=== PATIENT | female | born 1975 | race Caucasian/White ===

== ENCOUNTER 2023-01-15 14:50 | Outpatient (CLI) | payer OTHER, SELFPAY ==
--- NOTE | ~2023-01-15 | CT_ITS ---
EXAMINATION: CT abdomen pelvis wo con DATE: 01/15/2023 15:51 INDICATION: Abdominal pain, bloating and diarrhea. TECHNIQUE: Computed tomography (CT) of the abdomen and pelvis was performed without intravenous contr ast. The dose-length product was 1476.39 mGy-cm. Automated exposure control and iterative reconstruct ion technique were employed. COMPARISON: None. FINDINGS: Lung bases are unremarkable. Heart size normal. No significant pleural or pericardial effus ion. Small hiatal hernia. Small umbilical hernia containing fat. There is atherosclerosis of the aorta without aneurysm. No lymphadenopathy. The liver, spleen, pancre as, adrenal glands and kidneys are unremarkable. Gallbladder is present. No free air or free fluid. N onobstructive bowel pattern. Mild lumbar spondylosis. IMPRESSION: 1. No acute abdominal abnormality. Reviewed, dictated and finalized at location L.
== END 2023-01-15 14:51 | disposition home or self-care (01) ==
PROVIDERS: PCP Family Medicine; Visit Provider Nurse Practitioner
DX: R10.13 Epigastric pain (principal)
CPT/HCPCS: 74176

== ENCOUNTER 2023-02-24 00:06 | Day surgery (SDC) | payer OTHER, SELFPAY ==
[2023-02-13 11:24] VITALS: BMI 48.8
[2023-02-24 09:51] VITALS: BP 177/90; PULSE 92; RESP 20; TEMP 36.4; O2SAT 98
[2023-02-24] MEDS: LACTATED RINGERS 1,000 ML 150 ML IV CONT (10:08)
--- NOTE | 2023-02-24 10:13 | WPDANESEPPF ---
Anes - Initial Pre Proc Eval Procedure: Operation Date: 02/24/23 10:45 Proposed Procedures p Esophagogastroduodenoscopy & Colonoscopy - Herminio Swift MD Date/Time: 02/24/23 10:13 Surgeon: Herminio Swift MD Pre Op Diagnosis: ibs w/ diarrhea,vomiting, gerd, abdominal distensi Patient Data Age: 47 Gender: F Height: 1.6 m Weight: 123.4 kg Last Vital Signs Temp 97.6 F 02/24/23 09:51 Pulse 92 02/24/23 09:51 Resp 20 02/24/23 09:51 BP 177/90 H 02/24/23 09:51 Pulse Ox 98 02/24/23 09:51 O2 Del Method Room Air 02/24/23 09:51 Allergies Allergy/AdvReac Type Severity Reaction Status Date / Time shellfish derived Allergy Severe Anaphylactic Verified 02/24/23 09:47 Shock Iodinated Contrast Media Allergy Unknown Verified 02/24/23 09:47 Home Medications Medication Instructions Recorded Confirmed Type alprazolam 0.25 mg tablet (Xanax) 0.25 mg PO QHS PRN anxiety #30 tabs 11/26/21 02/13/23 Rx metoprolol succinate 200 mg 200 mg PO DAILY #90 tabs 11/25/22 02/13/23 Rx tablet,extended release 24 hr levothyroxine 88 mcg tablet 88 mcg PO DAILY #90 tabs 12/03/22 02/13/23 Rx sertraline 100 mg tablet 150 mg PO DAILY #45 tabs 12/10/22 02/13/23 Rx ascorbic acid (vitamin C) 500 mg 500 mg PO DAILY 01/06/23 02/13/23 History capsule,extended release cholecalciferol (vitamin D3) 325 325 mcg PO DAILY 01/06/23 02/13/23 History mcg (13,000 unit) capsule omeprazole 40 mg capsule,delayed 40 mg PO DAILY #30 caps 01/06/23 02/13/23 Rx release sucralfate 1 gram tablet (Carafate) 1 g PO PRN PRN Indigestion 02/13/23 02/13/23 History Patient hx anesthesia problems: none Family hx anesthesia problems: none Results Review: All pre-operative results and documents have been reviewed as part of the pre-operative evaluation. PMFSH Past Medical History Medical History (Updated 01/07/23 @ 08:02 by Bessy Dyer APRN) Anxiety Elevated LFTs Epigastric pain Hypertension Hypothyroidism Irritable bowel syndrome with diarrhea Morbid obesity Nausea Regurgitation of food Family History Family History Mother Family history of thyroid disease Diabetes mellitus Hypertension Family history of rheumatoid arthritis Father Diabetes mellitus Family history of hypercholesterolemia Grandparent Diabetes mellitus, Onset Age: 75 Family history of cardiovascular disease, Onset Age: 75 Acute myocardial infarction, Onset Age: 75 Family history of lung cancer, Onset Age: 75 Family history of dementia, Onset Age: 75 Social History Social History Smoking status: Never smoker Alcohol intake: never Substance use: never Substance use type: does not use Lack of Transportation: No Lack of Food: Never True Current Housing: I Have Housing Concerned About Future Housing: No Difficulty Paying Gas/Electric Bills: No Difficulty Paying for Meds: No Currently Unemployed: No Education: Bachelor's Degree Difficulty w/ Childcare or Family Care: No Living arrangements: with family Spiritual care concerns: No Anes - Eval Final PreProcedure Day of Procedure 02/24/23 10:13 Patient weight: morbidly obese Heart: regular rate and rhythm Lungs: clear to auscultation Airway: Mallampati scale class III Neurological: alert and oriented Last oral intake: >/= 8 hours ASA classification: III Emergent: no Anesthetic plan: proceed Anesthesia type and monitoring: general GIVS and standard monitoring Results Review: All pre-operative results and documents have been reviewed as part of the pre-operative evaluation. Informed Consent: The patient's anesthetic plan and its attendant risks and benefits were discussed with the patient/family/POA. Questions were solicited and answers provided to the satisfaction of the patient/family/POA.
--- NOTE | 2023-02-24 10:34 | PM.HPGS ---
History of Present Illness History of Present Illness Consent: Risks, benefits, and alternatives have been discussed and questions answered. Patient agrees to proceed with procedure. Chief complaint: ibs w/ diarrhea,vomiting, gerd, abdominal distensi Narrative: Bri Valera is a 47 year old female with intermittent upper abdominal pain and nausea, CT scan negative. Last colonoscopy 2012. Review of Systems Constitutional: Constitutional: Denies headache(s) and Denies weakness Eyes: Eyes: Denies blurry vision ENT: Reports Normal hearing present, Denies headache(s) and Denies neck pain Cardiovascular: Cardiovascular: Denies chest pain and Denies dyspnea Respiratory: Respiratory: Denies dyspnea Gastrointestinal: Gastrointestinal: Reports no additional gastrointestinal complaints Genitourinary: Genitourinary: Denies dysuria Musculoskeletal: Musculoskeletal: Denies neck pain Integumentary/Breasts: Skin/Breast: Denies dry skin Neurologic: Reports Normal hearing present, Denies headache(s) and Denies weakness Psychiatric: Psychiatric: Denies anxiety Endocrine: Endocrine: Denies change in body appearance Hematologic/Lymphatic: Hematologic/Lymphatic: Denies easy bleeding Allergic/Immunologic: Allergic/Immunologic: Denies urticaria PMFSH Past Medical History Medical History (Updated 01/07/23 @ 08:02 by Bessy Dyer APRN) Anxiety Elevated LFTs Epigastric pain Hypertension Hypothyroidism Irritable bowel syndrome with diarrhea Morbid obesity Nausea Regurgitation of food Family History Family History Mother Family history of thyroid disease Diabetes mellitus Hypertension Family history of rheumatoid arthritis Father Diabetes mellitus Family history of hypercholesterolemia Grandparent Diabetes mellitus, Onset Age: 75 Family history of cardiovascular disease, Onset Age: 75 Acute myocardial infarction, Onset Age: 75 Family history of lung cancer, Onset Age: 75 Family history of dementia, Onset Age: 75 Social History Social History Smoking status: Never smoker Alcohol intake: never Substance use: never Substance use type: does not use Lack of Transportation: No Lack of Food: Never True Current Housing: I Have Housing Concerned About Future Housing: No Difficulty Paying Gas/Electric Bills: No Difficulty Paying for Meds: No Currently Unemployed: No Education: Bachelor's Degree Difficulty w/ Childcare or Family Care: No Living arrangements: with family Spiritual care concerns: No Meds Home Medications and Allergies Home Medications Medication Instructions Recorded Confirmed Type alprazolam 0.25 mg tablet (Xanax) 0.25 mg PO QHS PRN anxiety #30 tabs 11/26/21 02/13/23 Rx metoprolol succinate 200 mg 200 mg PO DAILY #90 tabs 11/25/22 02/13/23 Rx tablet,extended release 24 hr levothyroxine 88 mcg tablet 88 mcg PO DAILY #90 tabs 12/03/22 02/13/23 Rx sertraline 100 mg tablet 150 mg PO DAILY #45 tabs 12/10/22 02/13/23 Rx ascorbic acid (vitamin C) 500 mg 500 mg PO DAILY 01/06/23 02/13/23 History capsule,extended release cholecalciferol (vitamin D3) 325 325 mcg PO DAILY 01/06/23 02/13/23 History mcg (13,000 unit) capsule omeprazole 40 mg capsule,delayed 40 mg PO DAILY #30 caps 01/06/23 02/13/23 Rx release sucralfate 1 gram tablet (Carafate) 1 g PO PRN PRN Indigestion 02/13/23 02/13/23 History Allergies Allergy/AdvReac Type Severity Reaction Status Date / Time shellfish derived Allergy Severe Anaphylactic Verified 02/24/23 09:47 Shock Iodinated Contrast Media Allergy Unknown Verified 02/24/23 09:47 Vital Signs Vital Signs - 24 hr 02/24/23 09:51 Temperature 97.6 F Pulse Rate 92 Respiratory Rate 20 Blood Pressure 177/90 H Pulse Oximetry 98 Oxygen Delivery Room Air Exam Const: General: comfortabl
--- NOTE | 2023-02-24 10:52 | SUR.OPER ---
EGD ended 1045, colonoscopy started 1051
[2023-02-24 11:05] VITALS: BP 129/68; PULSE 78; RESP 11; O2SAT 99
[2023-02-24 11:15] VITALS: BP 135/74; PULSE 79; RESP 18; O2SAT 98
[2023-02-24 11:24] VITALS: BP 136/61; PULSE 76; RESP 22; O2SAT 97
== END 2023-02-24 11:37 | disposition home or self-care (01) ==
PROVIDERS: PCP Family Medicine; Visit Provider Internal Medicine Gastroenterology
PROC: 0DJ08ZZ Inspection of Upper Intestinal Tract, Via Natural or Artificial Opening Endoscopic (ICD-10-PCS; CPT 43235; principal; 2023-02-24 10:45)
DX: Z12.11 Encounter for screening for malignant neoplasm of colon (principal); K64.8 Other hemorrhoids; R10.13 Epigastric pain; R11.0 Nausea; R14.0 Abdominal distension (gaseous); K58.0 Irritable bowel syndrome with diarrhea; I10 Essential (primary) hypertension; E03.9 Hypothyroidism, unspecified; F41.9 Anxiety disorder, unspecified; E66.01 Morbid (severe) obesity due to excess calories; Z68.42 Body mass index [BMI] 45.0-49.9, adult
CPT/HCPCS: 45378; 43239; 88305; J2704; J7120